=== PATIENT | female | born 1990 | race Caucasian/White ===

== ENCOUNTER 2017-07-22 12:00 | Emergency (ER) | payer SELFPAY ==
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
[2017-07-22 14:31] LABS: #Eosinphils 0.1 thou/uL (0.0-0.7); #Lymphocytes 1.5 thou/uL (1.20-3.40); #Monocytes 0.5 thou/uL (0.11-0.59); #Neutrophils 7.3 thou/uL (1.40-6.50); %Basophils 0.2 % (0.0-1.0); %Eosinophils 0.7 % (0.0-10.0); %Lymphocytes 16.4 % (21.0-51.0); %Monocytes 4.9 % (0.0-10.0); %Neutrophils 77.8 % (42.0-75.0); Hemoglobin 14.1 g/dL (12.0-16.0); Mean Corpuscular HGB CONC 34.6 g/dL (32.0-36.0); Mean Corpuscular Hemoglobin 32.3 pg (27.0-31.0); Mean Corpuscular Volume 93.2 fl (81.0-99.0); Mean Platelet Volume 6.9 fL (7.4-10.4); Platelet Count 263 thou/uL (130-400); RBC Distribution Width 11.6 % (11.5-14.5); Red Blood Cell (RBC) Count 4.38 mill/uL (4.20-5.40); White Blood Cell (WBC) Count 9.3 thou/uL (4.8-10.8)
[2017-07-22 14:52] LABS: Anion Gap 7 mmol/L (10-20); BUN (Urea Nitrogen) 12 mg/dL (7.0-18.7); Calc. Creatinine Clearance 0 mL/min (70-130); Calcium 9.7 mg/dL (7.8-10.44); Carbon Dioxide 33 mmol/L (22-29); Chloride 101 mmol/L (98-107); Estimated GFR-MDRD 85; Glucose 75 mg/dL (70-105); Potassium 3.4 mmol/L (3.5-5.1); Sodium 138 mmol/L (136-145)
[2017-07-22] MEDS ORDERED: Adacel (T-DAP) 0.5 ML VIAL ONE (14:57)
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
[2017-07-22 16:06] LABS: BHCG - Serum Negative (NEGATIVE); Pregs Control Background? CLEAR/WHITE (CLR/WHITE); Pregs Control Bar Appear? YES (CONTROL BAR)
== END 2017-07-22 16:38 | disposition home or self-care (01) ==
LOC: ERS 12:00
DX: S63.635A Sprain of interphalangeal joint of left ring finger, initial encounter (principal); S40.012A Contusion of left shoulder, initial encounter; S40.022A Contusion of left upper arm, initial encounter; S80.812A Abrasion, left lower leg, initial encounter; E87.6 Hypokalemia; Y04.8XXA Assault by other bodily force, initial encounter; Y04.0XXA Assault by unarmed brawl or fight, initial encounter
CPT/HCPCS: 36415; 72125; 80048; 84703; 85025; 90715

== ENCOUNTER 2017-08-30 08:36 | Emergency (ER) | payer SELFPAY ==
[2017-08-30 09:15] LABS: #Basophils 0.1 thou/uL (0.0-0.2); #Eosinphils 0.1 thou/uL (0.0-0.7); #Lymphocytes 1.3 thou/uL (1.20-3.40); #Monocytes 0.3 thou/uL (0.11-0.59); #Neutrophils 3.5 thou/uL (1.40-6.50); %Basophils 1.5 % (0.0-1.0); %Eosinophils 1.1 % (0.0-10.0); %Lymphocytes 24.4 % (21.0-51.0); %Monocytes 6.5 % (0.0-10.0); %Neutrophils 66.4 % (42.0-75.0); Mean Corpuscular HGB CONC 34.1 g/dL (32.0-36.0); Mean Corpuscular Hemoglobin 31.5 pg (27.0-31.0); Mean Corpuscular Volume 92.4 fL (78.0-98.0); Platelet Count 261 thou/uL (130-400); RBC Distribution Width 11.4 % (11.5-14.5); Red Blood Cell (RBC) Count 4.11 mill/uL (4.20-5.40); White Blood Cell (WBC) Count 5.3 thou/uL (4.8-10.8)
[2017-08-30 09:52] LABS: Bacteria/HPF 4+ HPF (None Seen); Bilirubin Negative (Negative); Blood, Urine Large (Negative); Clarity CLOUDY (Clear); Glucose, Urine (Dipstick) Negative (Negative); Hyaline Casts/LPF 4-6 HYALINE CAST LPF (0-3 Hyaline); Leukocyte Small (Negative); Nitrite Positive (Negative); Pathc Cast-AUWi Flag 1.45 (0-2.49); Protein, Urine (Dipstick) Trace mg/dL (Neg-Trace); Specific Gravity, Urine 1.024 (1.002-1.036); Squamous Epithelial None Seen HPF (0-3); Urobilinogen 0.2 mg/dL (0.2-1.0)
[2017-08-30 10:00] LABS: Pregnancy Test - Urine (BHCG) Negative (Negative); Pregu Control Background? CLEAR/WHITE (CLR/WHITE); Pregu Control Bar Appear? YES (CONTROL BAR); Specific Gravity 1.024 (1.002-1.036)
[2017-08-30] MEDS ORDERED: cefTRIAXone\\ROCEPHIN 250 MG VIAL ONE (10:16)
[2017-08-30] MEDS ORDERED: Azithromycin 250 MG TAB ONE (10:16)
[2017-08-30] MEDS ORDERED: Lidocaine 1% PF 5 ML VIAL ONE (10:17)
== END 2017-08-30 10:44 | disposition home or self-care (01) ==
LOC: ERS 08:36
DX: N93.9 Abnormal uterine and vaginal bleeding, unspecified (principal); N39.0 Urinary tract infection, site not specified; F41.9 Anxiety disorder, unspecified; F31.9 Bipolar disorder, unspecified; F17.210 Nicotine dependence, cigarettes, uncomplicated
CPT/HCPCS: 36415; 81003; 81015; 81025; 85025; 87480; 87491; 87510; 87591; 87660; 96372; J0696; J2001

== ENCOUNTER 2017-09-12 10:51 | Emergency (ER) | payer SELFPAY ==
[2017-09-12] MEDS ORDERED: Proparacaine 0.5% Opth 15 ML BOT ONE (11:09)
[2017-09-12] MEDS ORDERED: Fluorescein Opthalmic Strip ONE (11:09)
== END 2017-09-12 11:25 | disposition home or self-care (01) ==
LOC: ERS 10:51
DX: S05.02XA Injury of conjunctiva and corneal abrasion without foreign body, left eye, initial encounter (principal); N76.0 Acute vaginitis; F31.9 Bipolar disorder, unspecified; F41.9 Anxiety disorder, unspecified; F17.210 Nicotine dependence, cigarettes, uncomplicated; W22.8XXA Striking against or struck by other objects, initial encounter
CPT/HCPCS: 99283

== ENCOUNTER 2017-11-29 13:11 | Emergency (ER) | payer SELFPAY | END 2017-11-29 14:02 | disposition home or self-care (01) | LOC: ERS 13:11 | DX: K02.9 Dental caries, unspecified (principal); F31.9 Bipolar disorder, unspecified; F41.9 Anxiety disorder, unspecified; F17.210 Nicotine dependence, cigarettes, uncomplicated | CPT/HCPCS: 99282 ==

== ENCOUNTER 2018-03-07 00:35 | Emergency (ER) | payer SELFPAY ==
[2018-03-07] MEDS ORDERED: Ketorolac Tromethamine 60 MG/2 ML VIAL ONE (02:06)
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
== END 2018-03-07 02:28 | disposition home or self-care (01) ==
LOC: ERS 00:35
DX: S70.01XA Contusion of right hip, initial encounter (principal); F41.9 Anxiety disorder, unspecified; F31.9 Bipolar disorder, unspecified; F17.210 Nicotine dependence, cigarettes, uncomplicated; V18.0XXA Pedal cycle driver injured in noncollision transport accident in nontraffic accident, initial encounter
CPT/HCPCS: 96372; J1885

== ENCOUNTER 2018-05-21 09:13 | Emergency (ER) | payer SELFPAY ==
[2018-05-21] MEDS ORDERED: Adacel (T-DAP) 0.5 ML SYRINGE ONE (09:24)
[2018-05-21] MEDS ORDERED: Lidocaine 1% (PF) 30 ML VIAL ONE (09:26)
[2018-05-21] MEDS ORDERED: Bacitracin Zinc 1 Packet ONE (10:15)
[2018-05-21] MEDS ORDERED: Sulfameth/Trimethoprim DS 800-160mg TAB ONE (10:27)
== END 2018-05-21 10:30 | disposition home or self-care (01) ==
LOC: ERS 09:13
DX: S61.214A Laceration without foreign body of right ring finger without damage to nail, initial encounter (principal); F31.9 Bipolar disorder, unspecified; F41.9 Anxiety disorder, unspecified; F17.210 Nicotine dependence, cigarettes, uncomplicated; W26.0XXA Contact with knife, initial encounter
CPT/HCPCS: 12001; 90471; 90715; J2001

== ENCOUNTER 2018-05-24 17:22 | Emergency (ER) | payer SELFPAY ==
[2018-05-24] MEDS ORDERED: Ondansetron ODT 4 MG TAB ONE (18:04)
[2018-05-24 18:31] LABS: #Basophils 0.1 thou/uL (0.0-0.2); #Eosinphils 0.1 thou/uL (0.0-0.7); #Lymphocytes 1.9 thou/uL (1.20-3.40); #Monocytes 0.4 thou/uL (0.11-0.59); #Neutrophils 6.1 thou/uL (1.40-6.50); %Basophils 0.8 % (0.0-1.0); %Eosinophils 1.7 % (0.0-10.0); %Lymphocytes 22.5 % (21.0-51.0); %Monocytes 4.2 % (0.0-10.0); %Neutrophils 70.9 % (42.0-75.0); Hemoglobin 14.3 g/dL (12.0-16.0); Mean Corpuscular HGB CONC 33.3 g/dL (32.0-36.0); Mean Corpuscular Volume 92.9 fL (78.0-98.0); Mean Platelet Volume 6.6 fL (7.4-10.4); Platelet Count 270 thou/uL (130-400); RBC Distribution Width 12.2 % (11.5-14.5); Red Blood Cell (RBC) Count 4.63 mill/uL (4.20-5.40); White Blood Cell (WBC) Count 8.6 thou/uL (4.8-10.8)
[2018-05-24 18:35] LABS: BHCG - Serum Negative (NEGATIVE); Pregs Control Background? CLEAR/WHITE (CLR/WHITE); Pregs Control Bar Appear? YES (CONTROL BAR)
[2018-05-24 18:37] LABS: Bilirubin Negative (Negative); Blood, Urine Negative (Negative); Clarity TURBID (Clear); Glucose, Urine (Dipstick) Negative (Negative); Leukocyte Trace (Negative); Nitrite Negative (Negative); Protein, Urine (Dipstick) Trace mg/dL (Neg-Trace); Urobilinogen 0.2 mg/dL (0.2-1.0); pH, Urine 7.5 (5.0-9.0)
[2018-05-24 18:39] LABS: Bacteria/HPF 1+ HPF (None Seen); Hyaline Casts/LPF 4-6 HYALINE CAST LPF (0-3 Hyaline); Pathc Cast-AUWi Flag 1.63 (0-2.49)
[2018-05-24 18:44] LABS: ALT (SGPT) 38 U/L (8-55); AST (SGOT) 35 U/L (5-34); Albumin 4.3 g/dL (3.5-5.0); Alkaline Phosphatase 70 U/L (40-150); Anion Gap 12 mmol/L (10-20); BUN (Urea Nitrogen) 11 mg/dL (7.0-18.7); Bilirubin, Total 0.6 mg/dL (0.2-1.2); Calc. Creatinine Clearance 0 mL/min (70-130); Calcium 9.9 mg/dL (7.8-10.44); Carbon Dioxide 29 mmol/L (22-29); Chloride 101 mmol/L (98-107); Estimated GFR-MDRD 87; Globulin 3.3 g/dL (2.4-3.5); Glucose 98 mg/dL (70-105); Protein, Total 7.6 g/dL (6.0-8.3); Sodium 138 mmol/L (136-145)
== END 2018-05-24 19:03 | disposition home or self-care (01) ==
LOC: ERS 17:22
DX: N30.00 Acute cystitis without hematuria (principal); K52.9 Noninfective gastroenteritis and colitis, unspecified; F41.9 Anxiety disorder, unspecified; F31.9 Bipolar disorder, unspecified; F17.210 Nicotine dependence, cigarettes, uncomplicated
CPT/HCPCS: 80053; 81003; 81015; 84703; 85025; 96360; Q0162

== ENCOUNTER 2018-06-25 15:10 | Emergency (ER) | payer SELFPAY ==
[2018-06-25] MEDS ORDERED: Lidocaine 1% (PF) 30 ML VIAL ONE (15:57)
[2018-06-25] MEDS ORDERED: Bupivacaine 0.5% 10 ML VIAL ONE (15:57)
--- NOTE | 2018-06-25 16:08 | RAD ---
EXAM: 3 views of the right hand COMPARISON: 08/26/2012 HISTORY: Abscess on finger after inability to remove stitches FINDINGS: 3 views of the right hand shows no evidence of acute fracture or dislocation. No degenerati ve changes are seen. Index finger soft tissue swelling is present. IMPRESSION: No evidence of acute osseous abnormality
[2018-06-25] MEDS ORDERED: Bacitracin Zinc 1 Packet ONE (16:34)
== END 2018-06-25 16:30 | disposition home or self-care (01) ==
LOC: ERS 15:10
DX: L02.511 Cutaneous abscess of right hand (principal); F41.9 Anxiety disorder, unspecified; F31.9 Bipolar disorder, unspecified; F17.210 Nicotine dependence, cigarettes, uncomplicated
CPT/HCPCS: 26010; J2001; J3490

== ENCOUNTER 2018-07-24 04:55 | Emergency (ER) | payer SELFPAY ==
[2018-07-24 05:38] LABS: Bilirubin Negative (Negative); Blood, Urine Negative (Negative); Clarity CLOUDY (Clear); Glucose, Urine (Dipstick) Negative (Negative); Leukocyte Negative (Negative); Nitrite Negative (Negative); Protein, Urine (Dipstick) Trace mg/dL (Neg-Trace); Specific Gravity, Urine 1.027 (1.002-1.036); Urobilinogen 0.2 mg/dL (0.2-1.0); pH, Urine 6.5 (5.0-9.0)
[2018-07-24] MEDS ORDERED: Ketorolac Tromethamine 30 MG/ML VIAL ONE (07:36)
[2018-07-24] MEDS ORDERED: Methocarbamol 500 MG TAB PO SCH (07:45)
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
[2018-07-25 10:15] LABS: Pregnancy Test - Urine (BHCG) Negative (Negative); Pregu Control Background? CLEAR/WHITE (CLR/WHITE); Pregu Control Bar Appear? YES (CONTROL BAR); Specific Gravity 1.027 (1.002-1.036)
== END 2018-07-24 07:35 | disposition home or self-care (01) ==
LOC: ERS 04:55
DX: M54.5 Low back pain (principal); F41.9 Anxiety disorder, unspecified; F31.9 Bipolar disorder, unspecified; F17.220 Nicotine dependence, chewing tobacco, uncomplicated; V13.9XXA Unspecified pedal cyclist injured in collision with car, pick-up truck or van in traffic accident, initial encounter
CPT/HCPCS: 72100; 81003; 81025; 96372; J1885

== ENCOUNTER 2018-09-11 11:14 | Emergency (ER) | payer SELFPAY ==
[2018-09-11] MEDS ORDERED: Ketorolac Tromethamine 60 MG/2 ML VIAL ONE (11:55)
[2018-09-11 12:00] LABS: Bilirubin Negative (Negative); Blood, Urine Large (Negative); Glucose, Urine (Dipstick) Negative (Negative); Leukocyte Small (Negative); Nitrite Negative (Negative); Pregnancy Test - Urine (BHCG) Negative (Negative); Pregu Control Background? CLEAR/WHITE (CLR/WHITE); Pregu Control Bar Appear? YES (CONTROL BAR); Protein, Urine (Dipstick) 30 mg/dL (Neg-Trace); Urobilinogen 0.2 mg/dL (0.2-1.0)
[2018-09-11] MEDS ORDERED: Phenazopyridine HCl 97.5 MG TABLET PO SCH (12:00)
[2018-09-11 12:01] LABS: Clarity Cloudy (Clear)
[2018-09-11 12:09] LABS: RBC/HPF 21-50 HPF (0-3)
[2018-09-11 12:10] LABS: Bacteria/HPF 2+ HPF (None Seen); Hyaline Casts/LPF NONE SEEN LPF (0-3 Hyaline); WBC/HPF 21-50 HPF (0-3)
--- NOTE | 2018-09-11 13:45 | CT ---
CT ABDOMEN AND PELVIS WITHOUT CONTRAST: DATE: 09/11/2018. PROVIDED CLINICAL HISTORY: Painful urination and back pain. FINDINGS: Comparison is made with the CT examination dated 05/28/2016. The visualized lung bases are free of significant opacity. There is right-sided hydronephrosis and right-sided hydroureter. There are 2 calcifications present in the pelvis, 1 right of midline and 1 left of midline that were both present on the prior examinati on and are compatible with phleboliths. There is no definite evidence for a ureteral or bladder calc ulus. The left kidney demonstrates no hydronephrosis. Several 1-2 mm calculi are present at the inf erior pole of the right kidney. The solid abdominal organs are suboptimally evaluated in the absence of IV contrast but demonstrate n o additional acute abnormality. Calcifications involving the liver and spleen are redemonstrated. There is no bowel dilatation, inflammatory fat stranding, free fluid, or free air apparent. There is conspicuous colonic fecal retention that may reflect constipation. The visualized portions of the a ppendix appear normal. The osseous structures demonstrate no concerning lytic or blastic lesions. R emote ununited fracture involving the left transverse process of L2 is noted. IMPRESSION: Right nephrolithiasis and right hydronephrosis with right hydroureter without definite evidence for u reteral or bladder calculus. Consider followup. This may be on the basis of a recently passed stone . POS: [facility]
== END 2018-09-11 12:05 | disposition home or self-care (01) ==
LOC: ERS 11:14
DX: N13.2 Hydronephrosis with renal and ureteral calculous obstruction (principal); F31.9 Bipolar disorder, unspecified; F41.9 Anxiety disorder, unspecified; F17.210 Nicotine dependence, cigarettes, uncomplicated
CPT/HCPCS: 74176; 81003; 81015; 81025; 96372; J1885

== ENCOUNTER 2018-09-23 01:57 | Emergency (ER) | payer SELFPAY | END 2018-09-23 02:40 | disposition home or self-care (01) | LOC: ERS 01:57 | DX: K04.7 Periapical abscess without sinus (principal); K02.9 Dental caries, unspecified; F41.9 Anxiety disorder, unspecified; F31.9 Bipolar disorder, unspecified; F17.210 Nicotine dependence, cigarettes, uncomplicated | CPT/HCPCS: 99282 ==

== ENCOUNTER 2018-10-09 18:36 | Emergency (ER) | payer SELFPAY | END 2018-10-09 20:12 | disposition home or self-care (01) | LOC: ERS 18:36 | DX: K02.9 Dental caries, unspecified (principal); K03.81 Cracked tooth; F41.9 Anxiety disorder, unspecified; F31.9 Bipolar disorder, unspecified; F17.210 Nicotine dependence, cigarettes, uncomplicated | CPT/HCPCS: 99282 ==

== ENCOUNTER 2018-12-11 01:01 | Emergency (ER) | payer SELFPAY | END 2018-12-11 02:04 | disposition home or self-care (01) | LOC: ERS 01:01 | DX: L25.9 Unspecified contact dermatitis, unspecified cause (principal); F41.9 Anxiety disorder, unspecified; F31.9 Bipolar disorder, unspecified; F17.210 Nicotine dependence, cigarettes, uncomplicated | CPT/HCPCS: 99282 ==

== ENCOUNTER 2018-12-22 09:27 | Observation (INO) | payer SELFPAY ==
[2018-12-22] MEDS ORDERED: Metoclopramide HCl 10 MG/2 ML VIAL ONE (09:51)
[2018-12-22] MEDS ORDERED: Loperamide HCl 2 MG CAP ONE (09:51)
[2018-12-22 10:01] LABS: #Eosinphils 0.1 thou/uL (0.0-0.7); #Lymphocytes 1.6 thou/uL (1.20-3.40); #Monocytes 0.3 thou/uL (0.11-0.59); #Neutrophils 7.9 thou/uL (1.40-6.50); %Basophils 0.4 % (0.0-1.0); %Lymphocytes 16.3 % (21.0-51.0); %Monocytes 3.4 % (0.0-10.0); Hemoglobin 16.8 g/dL (12.0-16.0); Mean Corpuscular HGB CONC 34.1 g/dL (32.0-36.0); Mean Corpuscular Hemoglobin 31.9 pg (27.0-31.0); Mean Corpuscular Volume 93.7 fL (78.0-98.0); Mean Platelet Volume 6.6 fL (7.4-10.4); Platelet Count 288 thou/uL (130-400); RBC Distribution Width 11.3 % (11.5-14.5); Red Blood Cell (RBC) Count 5.27 mill/uL (4.20-5.40)
[2018-12-22 10:15] LABS: ALT (SGPT) 17 U/L (8-55); AST (SGOT) 22 U/L (5-34); Albumin 5.2 g/dL (3.5-5.0); Alkaline Phosphatase 77 U/L (40-110); Anion Gap 14 mmol/L (10-20); BUN (Urea Nitrogen) 12 mg/dL (7.0-18.7); Bilirubin, Total 0.9 mg/dL (0.2-1.2); Calc. Creatinine Clearance 0 mL/min (70-130); Calcium 10.4 mg/dL (7.8-10.44); Carbon Dioxide 24 mmol/L (22-29); Chloride 100 mmol/L (98-107); Estimated GFR-MDRD 76; Globulin 3.6 g/dL (2.4-3.5); Glucose 89 mg/dL (70-105); Lipase 221 U/L (8-78); Potassium 4.4 mmol/L (3.5-5.1); Protein, Total 8.8 g/dL (6.0-8.3); Sodium 134 mmol/L (136-145)
[2018-12-22] MEDS ORDERED: Morphine 4 MG/ML VIAL ONE (11:01)
[2018-12-22 11:14] LABS: BHCG - Serum Negative (NEGATIVE); Pregs Control Background? CLEAR/WHITE (CLR/WHITE); Pregs Control Bar Appear? YES (CONTROL BAR)
--- NOTE | 2018-12-22 12:50 | CT ---
CT abdomen and pelvis with IV and oral contrast HISTORY: Abdominal pain. COMPARISON: 09/11/2018. FINDINGS: Lung bases are clear. Dystrophic calcifications of the liver and calcified granulomata of t he spleen are similar in appearance to the prior study. Calcifications at the inferior pole of the right kidney are smaller and less in number than on the pr ior study. The largest is a 0.3 cm calculus. No hydronephrosis. Phleboliths are apparent within the pelvis. No evidence of bowel obstruction. No free air or free flu id. Degenerative changes lumbar spine. Mildly displaced nonhealed fracture of the left L3 transverse proc ess. IMPRESSION: Interval decrease in stone burden of the right kidney. The largest calculus is 0.3 cm. No evidence of urinary tract obstruction. The fracture of the left L3 transverse process has developed since the September 2018 CT exam. No other ac bernard osseous abnormalities are demonstrated.
[2018-12-22 15:49] VITALS: BMI 18.5
[2018-12-22] MEDS ORDERED: Acetaminophen 325 MG TAB PO PRN (15:49)
[2018-12-22] MEDS ORDERED: Promethazine HCl 25 MG/ML VIAL IM/IV PRN (15:53)
[2018-12-22] MEDS: Sodium Chloride 0.9% 1,000 ML IV SCH (16:05)
[2018-12-22 16:36] LABS: Bacteria/HPF None Seen HPF (None Seen); Bilirubin Negative (Negative); Blood, Urine 2+ (Negative); Clarity Clear (Clear); Glucose, Urine (Dipstick) Normal (Negative); Leukocyte Negative Leu/uL (Negative); Nitrite 2+ (Negative); Protein, Urine (Dipstick) 10 mg/dL (Neg-Trace); Squamous Epithelial 0-3 HPF (0-3); Urobilinogen Normal mg/dL (Less than 2)
[2018-12-22] MEDS: Nicotine 14 MG PATCH TD SCH (16:40)
[2018-12-22 16:44] LABS: Amphetamine Detected (NotDetected); Barbiturates Screen Not Detected (NotDetected); Benzodiazepine Screen Not Detected (NotDetected); Cocaine Metabolite Screen Not Detected (NotDetected); Medtox Control Line Valid? VALID (VALID); Medtox Reader # READER 4; Methadone Not Detected (NotDetected); Methamphetamine Detected (NotDetected); Opiate Screen Detected (NotDetected); Oxycodone Screen Not Detected (NotDetected); Phencyclidine (PCP) Not Detected (NotDetected); THC/Cannabinoid Screen Detected (NotDetected); Tricyclic Screen Not Detected (NotDetected)
--- NOTE | 2018-12-22 19:50 | HP ---
PRIMARY CARE PHYSICIAN: None. HISTORY OF PRESENT ILLNESS: Ms. Lerner is a 28-year-old female who came to the emergency room today for complaints of nausea, vomiting, and diarrhea. EMS reports the patient told them that she woke up at 1600 hours yesterday, feeling badly with complaints of vomiting and diarrhea. Reports that she stays at the [facility] and reported everybody ate the same lunch and that she is aware of at least one other person that is not feeling well. The patient denies any alcohol or drug use. She reports an allergy to Zofran, Flagyl, reports it gives her hives. She denies any past significant medical history or chronic illness. She reports diffuse abdominal pain. Denies fever. Reports chills. Lab values indicative of a little dehydration. The patient will be admitted to the observation unit for further management. REVIEW OF SYSTEMS: Reports nausea, vomiting, diarrhea, diffuse abdominal pain, dysuria, and chills. All other systems reviewed and are negative unless mentioned in the HPI. PAST MEDICAL HISTORY: None. PAST SURGICAL HISTORY: C-sections x3. PSYCHIATRIC HISTORY: Anxiety, bipolar, and depression. SOCIAL HISTORY: Denies any alcohol use. Denies drug use. Currently uses tobacco. Smokes half pack a day. Lives at the [facility]. ALLERGIES: CODEINE, FLAGYL, PENICILLIN, AND ZOFRAN. CURRENT MEDICATIONS: None. PHYSICAL EXAMINATION: VITAL SIGNS: Blood pressure 105/63, pulse is 78, respirations 17, temperature is 98.4, and pO2 sats are 97% on room air. CONSTITUTIONAL: She is alert and oriented to person, place, and time. She appears to feel ill. HEENT: Head is atraumatic and normocephalic. Eyes, pupils are equally round and reactive to light. Extraocular muscles are intact. ENT, mucous membranes are dry and cracked. Pharynx exam is normal. NECK: Normal range of motion. Trachea is midline. RESPIRATORY/CHEST: Breath sounds are clear. Chest expansion is equal. CARDIOVASCULAR: Regular heart rate and rhythm. Heart sounds are normal. ABDOMEN: Diffusely tender, mild intensity. Bowel sounds are heard. BACK: Normal range of motion. No tenderness. EXTREMITIES: Upper extremities; normal range of motion. Inspection is normal. Radial pulses are equal. Lower extremities; normal inspection. Normal range of motion. Motor strength is normal. Pedal pulses are normal. No edema is noted. NEUROLOGIC: The patient was oriented to person, place, and time. Speech is normal. ASSESSMENT AND PLAN: 1. Suspicion of pancreatitis with lipase at 221. Sodium was 134. White blood cell count was normal. We will keep n.p.o. We will allow ice chips, increase diet as tolerated, fluids normal saline at 100 mL per hour, Phenergan 12.5 mg q.6 as needed for nausea and vomiting as the patient is allergic to Zofran. We will send off for stool cultures if collected. Repeat lab values in the morning. 2. The patient with dysuria, urine with ketones, blood, nitrites, white blood cell, but no bacteria seen, we will culture. Since the patient is complaining of dysuria, we will go ahead and start Rocephin, but could possibly deescalate when if urine culture is negative. 3. Smoking history and drug abuse per urine drug screen. Counseling provided. 4. Deep venous thrombosis and gastrointestinal prophylaxis started. 5. Case discussed with Dr. Herron who agrees with plan. 6. Hospital course is dependent on clinical findings. Job ID: [id number]
[2018-12-22] MEDS ORDERED: cefTRIAXone\\ROCEPHIN 1 GM in Sodium Chloride 0.9% 100 ML IVPB SCH (20:00)
[2018-12-22] MEDS: Famotidine/PF 20 mg/2ml Vial SLOW IVP SCH (22:04)
[2018-12-23] MEDS: Sodium Chloride 0.9% 1,000 ML IV SCH ×3 (01:44→15:39)
[2018-12-23 06:01] LABS: #Eosinphils 0.2 thou/uL (0.0-0.7); #Monocytes 0.4 thou/uL (0.11-0.59); #Neutrophils 2.9 thou/uL (1.40-6.50); %Basophils 0.4 % (0.0-1.0); %Eosinophils 4.3 % (0.0-10.0); %Monocytes 6.9 % (0.0-10.0); %Neutrophils 52.4 % (42.0-75.0); Hemoglobin 13.7 g/dL (12.0-16.0); Mean Corpuscular Hemoglobin 32.4 pg (27.0-31.0); Mean Corpuscular Volume 95.1 fL (78.0-98.0); Mean Platelet Volume 6.8 fL (7.4-10.4); Platelet Count 217 thou/uL (130-400); RBC Distribution Width 11.3 % (11.5-14.5); Red Blood Cell (RBC) Count 4.23 mill/uL (4.20-5.40); White Blood Cell (WBC) Count 5.4 thou/uL (4.8-10.8)
[2018-12-23 06:28] LABS: ALT (SGPT) 12 U/L (8-55); AST (SGOT) 17 U/L (5-34); Albumin 3.8 g/dL (3.5-5.0); Alkaline Phosphatase 55 U/L (40-110); Anion Gap 12 mmol/L (10-20); BUN (Urea Nitrogen) 12 mg/dL (7.0-18.7); Calc. Creatinine Clearance 98 mL/min (70-130); Calcium 8.8 mg/dL (7.8-10.44); Carbon Dioxide 20 mmol/L (22-29); Chloride 108 mmol/L (98-107); Estimated GFR-MDRD Greater than 90; Globulin 2.6 g/dL (2.4-3.5); Glucose 72 mg/dL (70-105); Potassium 3.7 mmol/L (3.5-5.1); Protein, Total 6.4 g/dL (6.0-8.3); Sodium 136 mmol/L (136-145)
[2018-12-23] MEDS: Famotidine/PF 20 mg/2ml Vial SLOW IVP SCH (10:03)
[2018-12-23 12:08] VITALS: BP 96/46; TEMP 96.8
[2018-12-23] MEDS: Nicotine 14 MG PATCH TD SCH (16:56)
--- NOTE | 2018-12-23 17:53 | DIS ---
DATE OF ADMISSION: 12/22/2018 DATE OF DISCHARGE: 12/23/2018 DISCHARGE DIAGNOSES: 1. Nausea, vomiting, and diarrhea, multifactorial including polysubstance abuse. 2. Pancreatitis, mild acute secondarily to #1, resolving. 3. Polysubstance abuse including opiates, methamphetamines, and cannabis. 4. Tobacco abuse. 5. Urinary tract infection with Proteus mirabilis. CONSULTATIONS: None. PERTINENT LABORATORY AND X-RAY FINDINGS: Lipase 221. Serum beta-hCG, negative on 12/22/2018. Hemoglobin ranged between 13.7 to 16.8. Urine drug screen, positive for opiates, amphetamines, methamphetamines and cannabinoids. Urine culture dated 12/22/2018, showed greater than 100,000 colonies of presumptive Proteus mirabilis. C difficile antigen and toxin, negative on 12/23/2018. Campylobacter and Shigella toxin, negative on 12/23/2018. CT of the abdomen and pelvis dated 12/22/2018, showed no acute intraabdominal process. HOSPITAL COURSE: The patient was observed on the medical floor after initially presenting with nausea, vomiting, and diarrhea. The patient initially managed with IV fluids, Zofran, Flagyl and Phenergan. The patient was noted with mild elevation to lipase, likely due to nausea, vomiting, and diarrhea in the context of polysubstance abuse. The patient received general supportive management and otherwise clinically stabilized with supportive care. The patient was noted with greater than 100,000 colonies of Proteus species on urine culture, treated with Levaquin 500 mg daily x5 days. Overall, the patient did remain clinically stable during the hospital course, tolerating clear liquids. I have examined the patient at the time of discharge and discussed followup instructions. The patient overall clinically stable and ready for discharge on 12/23/2018. DISCHARGE MEDICATIONS: Levaquin 500 mg 1 tablet p.o. daily x5 days. FOLLOWUP: The patient may follow up with [facility] within 7 days of discharge. CONDITION ON DISCHARGE: Stable. ACTIVITY: Ad-malissa. DIET: Clear liquids x24 hours. CODE STATUS: Full. DISPOSITION: Home on 12/23/2018. Job ID: [id number]
== END 2018-12-23 18:00 | disposition home or self-care (01) ==
LOC: ERS 09:27 → 2SW 15:11
PROVIDERS: ADMIT Internal Medicine; ATTEND Internal Medicine
DX: T40.7X1A Poisoning by cannabis (derivatives), accidental (unintentional), initial encounter (principal); K85.30 Drug induced acute pancreatitis without necrosis or infection; F12.188 Cannabis abuse with other cannabis-induced disorder; T43.621A Poisoning by amphetamines, accidental (unintentional), initial encounter; F15.188 Other stimulant abuse with other stimulant-induced disorder; T40.2X1A Poisoning by other opioids, accidental (unintentional), initial encounter; F11.188 Opioid abuse with other opioid-induced disorder; N39.0 Urinary tract infection, site not specified; B96.4 Proteus (mirabilis) (morganii) as the cause of diseases classified elsewhere; F17.210 Nicotine dependence, cigarettes, uncomplicated; Z88.0 Allergy status to penicillin; Z88.5 Allergy status to narcotic agent; Z88.8 Allergy status to other drugs, medicaments and biological substances
CPT/HCPCS: 36415; 74177; 80053; 80306; 81001; 83690; 84703; 85025; 87045; 87046; 87077; 87086; 87186; 87324; 87427; 87449; 96361; 96365; 96375; 96376; G0378; J0696; J2270; J2765; J3490; S0028

== ENCOUNTER 2019-01-22 16:11 | Emergency (ER) | payer SELFPAY ==
[2019-01-22] MEDS ORDERED: Ketorolac Tromethamine 60 MG/2 ML VIAL ONE (16:29)
== END 2019-01-22 16:54 | disposition home or self-care (01) ==
LOC: ERS 16:11
DX: S16.1XXA Strain of muscle, fascia and tendon at neck level, initial encounter (principal); F17.210 Nicotine dependence, cigarettes, uncomplicated; X58.XXXA Exposure to other specified factors, initial encounter
CPT/HCPCS: J1885

== ENCOUNTER 2019-01-23 13:20 | Emergency (ER) | payer SELFPAY ==
--- NOTE | 2019-01-23 14:36 | RAD ---
XR Cerv Sp Ap Lat STANDARD HISTORY: Left-sided neck pain FINDINGS: There is loss of cervical lordosis with mild reversal. No fracture, subluxation or bony destruction i s seen. No significant osteophytosis is noted. The prevertebral soft tissues appear normal. IMPRESSION: No acute findings.
[2019-01-23] MEDS ORDERED: Bupivacaine 0.5% 10 ML VIAL ONE (15:20)
[2019-01-23] MEDS ORDERED: Ketorolac Tromethamine 30 MG/ML VIAL ONE (15:21)
[2019-01-23] MEDS ORDERED: Acetaminophen 500 MG TAB ONE (15:44)
== END 2019-01-23 16:10 | disposition home or self-care (01) ==
LOC: ERS 13:20
DX: M54.2 Cervicalgia (principal); K85.90 Acute pancreatitis without necrosis or infection, unspecified; F17.210 Nicotine dependence, cigarettes, uncomplicated
CPT/HCPCS: 20552; 72040; 96372; J1885; J3490

== ENCOUNTER 2019-01-24 03:07 | Emergency (ER) | payer SELFPAY | END 2019-01-24 04:21 | disposition home or self-care (01) | LOC: ERS 03:07 | DX: M54.6 Pain in thoracic spine (principal); F17.210 Nicotine dependence, cigarettes, uncomplicated ==

== ENCOUNTER 2019-07-06 10:14 | Emergency (ER) | payer SELFPAY ==
[2019-07-06] MEDS ORDERED: Metoclopramide HCl 10 MG TAB ONE ×2 (11:38→11:40)
[2019-07-06 13:17] LABS: Pregnancy Test - Urine (BHCG) Negative (Negative); Pregu Control Background? CLEAR/WHITE (CLR/WHITE); Pregu Control Bar Appear? YES (CONTROL BAR); Specific Gravity 1.015 (1.002-1.036)
[2019-07-06] MEDS ORDERED: Promethazine HCl 25 MG/ML VIAL ONE (13:25)
[2019-07-06 13:44] LABS: #Eosinphils 0.1 thou/uL (0.0-0.7); #Lymphocytes 2.1 thou/uL (1.20-3.40); #Monocytes 0.4 thou/uL (0.11-0.59); #Neutrophils 5.7 thou/uL (1.40-6.50); %Basophils 0.6 % (0.0-1.0); %Eosinophils 1.1 % (0.0-10.0); %Lymphocytes 24.9 % (21.0-51.0); %Monocytes 4.6 % (0.0-10.0); %Neutrophils 68.9 % (42.0-75.0); Hemoglobin 17.7 g/dL (12.0-16.0); Mean Corpuscular HGB CONC 34.4 g/dL (32.0-36.0); Mean Corpuscular Hemoglobin 32.3 pg (27.0-31.0); Mean Platelet Volume 6.8 fL (7.4-10.4); Platelet Count 253 thou/uL (130-400); RBC Distribution Width 11.4 % (11.5-14.5); Red Blood Cell (RBC) Count 5.48 mill/uL (4.20-5.40); White Blood Cell (WBC) Count 8.3 thou/uL (4.8-10.8)
[2019-07-06 14:06] LABS: ALT (SGPT) 26 U/L (8-55); AST (SGOT) 29 U/L (5-34); Albumin 5.5 g/dL (3.5-5.0); Alkaline Phosphatase 74 U/L (40-110); Anion Gap 18 mmol/L (10-20); BUN (Urea Nitrogen) 13 mg/dL (7.0-18.7); Calc. Creatinine Clearance 0 mL/min (70-130); Calcium 10.7 mg/dL (7.8-10.44); Carbon Dioxide 28 mmol/L (22-29); Chloride 94 mmol/L (98-107); Estimated GFR-MDRD 87; Globulin 3.4 g/dL (2.4-3.5); Glucose 97 mg/dL (70-105); Lipase 30 U/L (8-78); Protein, Total 8.9 g/dL (6.0-8.3); Sodium 136 mmol/L (136-145)
[2019-07-06 14:20] LABS: Bacteria/HPF 3+ HPF (None Seen); Bilirubin Negative (Negative); Blood, Urine Negative (Negative); Clarity Extra Turbid (Clear); Glucose, Urine (Dipstick) Normal (Negative); Leukocyte Negative Leu/uL (Negative); Nitrite 2+ (Negative); Protein, Urine (Dipstick) 10 mg/dL (Neg-Trace); RBC/HPF 0-3 HPF (0-3); Triple Phosphate Crystal Rare HPF (None Seen); Urobilinogen Normal mg/dL (Less than 2)
[2019-07-06] MEDS ORDERED: cefTRIAXone\\ROCEPHIN 2 GM VIAL ONE (15:22)
[2019-07-06] MEDS ORDERED: Acetaminophen 500 MG TAB ONE (16:15)
--- NOTE | 2019-07-10 15:24 | EKG ---
Test Reason : Blood Pressure : / mmHG Vent. Rate : 064 BPM Atrial Rate : 064 BPM P-R Int : 134 ms QRS Dur : 086 ms QT Int : 388 ms P-R-T Axes : 042 084 056 degrees QTc Int : 400 ms Normal sinus rhythm with sinus arrhythmia No STEMI Normal ECG Confirmed by MERY SINGLETARY M.D. ([id number]), assignment editor TONY MONTIEL ([id number] on 07/10/2019 3:23:56 PM Referred By: Confirmed By:MERY SINGLETARY M.D.
== END 2019-07-06 16:18 | disposition home or self-care (01) ==
LOC: ERS 10:14
DX: N12 Tubulo-interstitial nephritis, not specified as acute or chronic (principal); F17.210 Nicotine dependence, cigarettes, uncomplicated
CPT/HCPCS: 80053; 81003; 81015; 81025; 83690; 85025; 87077; 87086; 87186; 93005; 94760; 96365; 96366; 96367; J0696; J2550